=== PATIENT | male | born 1960 | race Caucasian/White ===

== ENCOUNTER 2017-08-26 07:49 | Inpatient (IN) | payer BC, OTHER ==
[~2017-08-26] VITALS: Ht 167.6 cm; Wt 68.0 kg
[2017-08-26 15:00] VITALS: BP 155/91
[2017-08-26] MEDS ORDERED: LOPERAMIDE HCL 2 MG CAPSULE PO PRN ×2 (15:45)
[2017-08-26] MEDS ORDERED: IBUPROFEN 400 MG TABLET PO PRN (15:45)
[2017-08-26] MEDS ORDERED: MAG HYDROX/AL HYDROX/SIMETH 30 ML LIQUID UDC PO PRN (15:45)
[2017-08-26] MEDS ORDERED: THIAMINE HCL 200 MG/2 ML VIAL IM ONE (15:45)
[2017-08-26] MEDS ORDERED: ACETAMINOPHEN 325 MG TABLET PO PRN (15:45)
[2017-08-26] MEDS ORDERED: LORAZEPAM 2 MG/1 ML VIAL IM PRN (15:45)
[2017-08-26] MEDS ORDERED: MAGNESIUM HYDROXIDE 30 ML LIQUID UDC PO PRN (15:45)
[2017-08-26] MEDS ORDERED: DICYCLOMINE HCL 20 MG TABLET PO PRN (15:45)
[2017-08-26] MEDS ORDERED: ONDANSETRON 4 MG/2 ML VIAL IM PRN (15:45)
[2017-08-26] MEDS ORDERED: MIRALAX 17 GM POWD.PACK PO PRN (15:45)
[2017-08-26] MEDS ORDERED: LORAZEPAM 1 MG TABLET PO PRN (15:45)
[2017-08-26 15:55] LABS: *AMPHETAMINE, URINE NEGATIVE (NEGATIVE); *BARBITURATE, URINE NEGATIVE (NEGATIVE); *CANNABINOID, URINE NEGATIVE (NEGATIVE); *COCCAINE, URINE NEGATIVE (NEGATIVE); *OPIATE, URINE NEGATIVE (NEGATIVE); *PHENCYCLIDINE SCREEN,URINE NEGATIVE (NEGATIVE)
[2017-08-26] MEDS ORDERED: ATEN25TA PO (16:13)
[2017-08-26] MEDS ORDERED: ASPI81TA44 PO (16:13)
[2017-08-26] MEDS ORDERED: ATOR10TA PO (16:13)
[2017-08-26] MEDS ORDERED: MAGN400C PO (16:13)
[2017-08-26] MEDS ORDERED: CLON0.1T PO (16:13)
[2017-08-26] MEDS ORDERED: SERT50TA PO (16:13)
[2017-08-26] MEDS ORDERED: PEG15DRO2 OP (16:13)
[2017-08-26] MEDS ORDERED: CLON1TAB4 PO ×2 (16:13)
[2017-08-26] MEDS ORDERED: VISINE EACHEYE PRN (16:30)
[2017-08-26] MEDS ORDERED: [UNRECOGNIZED DRUG - OTHER] EACHEYE PRN (16:30)
[2017-08-26 17:00] VITALS: BP 152/87
[2017-08-26 20:00] VITALS: BP 156/94
[2017-08-26] MEDS: diphenhydrAMINE 50 MG CAPSULE PO PRN (20:45)
[2017-08-26] MEDS: hydrALAZINE HCL 50 MG TABLET PO PRN (20:45)
[2017-08-26] MEDS ORDERED: [UNRECOGNIZED DRUG - OTHER] PO SCH (21:00)
[2017-08-26] MEDS ORDERED: LORAZEPAM 1 MG TABLET PO SCH (21:00)
[2017-08-26] MEDS ORDERED: ATORVASTATIN PO SCH (21:00)
[2017-08-26 22:48] LABS: BASOPHILS % (AUTO) 0.7 % (0.0-2.0); EOSINOPHILS % (AUTO) 0.8 % (0.0-7.0); HEMATOCRIT 45.1 % (36.7-47.1); HEMOGLOBIN 15.7 g/dL (12.5-16.3); LYMPHOCYTES # (AUTO) 1.3 K/uL (20.0-40.0); LYMPHOCYTES % (AUTO) 22.4 % (20.5-51.5); MEAN CORPUSCULAR HEMOGLOBIN 33.6 uug (23.8-33.4); MEAN CORPUSCULAR HGB CONC 35 g/dL (32.5-36.3); MEAN CORPUSCULAR VOLUME 96.4 fL (73.0-96.2); MONOCYTES # (AUTO) 0.6 K/uL (2.0-10.0); MONOCYTES % (AUTO) 9.6 % (0.0-11.0); NEUTROPHILS # (AUTO) 3.9 K/uL (1.8-8.9); NEUTROPHILS % (AUTO) 66.5 % (38.5-71.5); PLATELET COUNT (AUTO) 68 K/uL (152-348); RED BLOOD CELL COUNT(AUTO) 4.69 MIL/uL (4.06-5.63); WHITE BLOOD COUNT (AUTO) 5.9 K/uL (3.6-10.2)
[2017-08-26 23:02] LABS: BILIRUBIN,TOTAL 0.9 mg/dL (0.2-1.0); CREATININE 0.8 mg/dL (0.6-1.3); MAGNESIUM 2.2 mg/dL (1.8-2.4); POTASSIUM 3.7 mmol/L (3.5-5.1); TOTAL PROTEIN, SERUM 7.7 g/dL (6.4-8.2)
[2017-08-27] VITALS: BP 142/80
[2017-08-27] MEDS: CLONIDINE HCL 0.1 MG TABLET PO PRN ×2 (00:16→12:12)
[2017-08-27] MEDS: LORAZEPAM 1 MG TABLET PO PRN ×3 (02:47→17:35)
[2017-08-27] MEDS: ONDANSETRON ODT 4 MG TAB.RAPDIS SL PRN ×2 (02:47→09:10)
[2017-08-27 04:00] VITALS: BP 149/83
[2017-08-27] MEDS: hydrALAZINE HCL 50 MG TABLET PO PRN ×2 (06:39→17:36)
[2017-08-27 08:00] VITALS: BP 138/85
[2017-08-27] MEDS ORDERED: TUBERCULIN,PURIF.PROT.DERIV. 5 TU/0.1 ML TEST ID ONE (09:00)
[2017-08-27] MEDS ORDERED: [UNRECOGNIZED DRUG - OTHER] PO SCH (09:00)
[2017-08-27] MEDS: FOLIC ACID 1 MG TABLET PO SCH (09:03)
[2017-08-27] MEDS: THIAMINE HCL 100 MG TABLET PO SCH (09:03)
[2017-08-27] MEDS: MULTIVITAMINS,THERAPEUTIC TABLET PO SCH (09:03)
[2017-08-27] MEDS: LORAZEPAM 1 MG TABLET PO SCH ×3 (09:03→20:14)
[2017-08-27] MEDS ORDERED: IBUPROFEN 400 MG TABLET PO PRN (09:30)
[2017-08-27] MEDS: SERTRALINE HCL 50 MG TABLET PO SCH (10:36)
[2017-08-27 12:00] VITALS: BP 145/92
[2017-08-27 16:00] VITALS: BP 138/88
[2017-08-27 20:12] VITALS: BP 145/89
[2017-08-27] MEDS: diphenhydrAMINE 50 MG CAPSULE PO PRN (20:14)
[2017-08-27] MEDS: GABAPENTIN 300 MG CAPSULE PO SCH (20:14)
[2017-08-28 00:37] VITALS: BP 141/83
[2017-08-28 04:58] VITALS: BP 139/81
[2017-08-28 07:42] LABS: BASOPHILS % (AUTO) 0.8 % (0.0-2.0); EOSINOPHILS # (AUTO) 0.2 K/uL (0.0-0.7); EOSINOPHILS % (AUTO) 3.1 % (0.0-7.0); LYMPHOCYTES # (AUTO) 0.9 K/uL (20.0-40.0); LYMPHOCYTES % (AUTO) 14.7 % (20.5-51.5); MEAN CORPUSCULAR HEMOGLOBIN 33.6 uug (23.8-33.4); MEAN CORPUSCULAR HGB CONC 35 g/dL (32.5-36.3); MEAN CORPUSCULAR VOLUME 96.3 fL (73.0-96.2); MONOCYTES # (AUTO) 0.5 K/uL (2.0-10.0); MONOCYTES % (AUTO) 8.4 % (0.0-11.0); NEUTROPHILS # (AUTO) 4.4 K/uL (1.8-8.9); PLATELET COUNT (AUTO) 56 K/uL (152-348); RED BLOOD CELL COUNT(AUTO) 4.77 MIL/uL (4.06-5.63)
[2017-08-28 08:06] LABS: HEPATITIS B SURFACE AG Negative (Negative)
[2017-08-28 08:15] VITALS: BP 148/88
[2017-08-28 08:32] LABS: BILIRUBIN,DIRECT 0.9 mg/dL (0.0-0.2); BILIRUBIN,TOTAL 1.9 mg/dL (0.2-1.0); CREATININE 1.1 mg/dL (0.6-1.3); PHOSPHOROUS 3.6 mg/dL (2.5-4.9); TOTAL PROTEIN, SERUM 7.6 g/dL (6.4-8.2)
[2017-08-28] MEDS ORDERED: [UNRECOGNIZED DRUG - OTHER] PO SCH (09:00)
[2017-08-28] MEDS: THIAMINE HCL 100 MG TABLET PO SCH (09:45)
[2017-08-28] MEDS: LORAZEPAM 1 MG TABLET PO SCH ×3 (09:45→20:03)
[2017-08-28] MEDS: FOLIC ACID 1 MG TABLET PO SCH (09:45)
[2017-08-28] MEDS: MULTIVITAMINS,THERAPEUTIC TABLET PO SCH (09:46)
[2017-08-28] MEDS: SERTRALINE HCL 50 MG TABLET PO SCH (09:46)
[2017-08-28] MEDS: GABAPENTIN 300 MG CAPSULE PO SCH ×2 (09:46→20:03)
[2017-08-28 10:29] LABS: BAND % (MANUAL) 3 % (0-10); EOSINOPHILS % (MANUAL) 4 % (0-8); LYMPHOCYTES % (MANUAL) 15 % (20-40); MONOCYTES % (MANUAL) 8 % (2-10); NEUTROPHILS % (MANUAL) 70 % (42-75)
[2017-08-28] MEDS: ATENOLOL 25MG PO SCH (10:32)
[2017-08-28 12:26] VITALS: BP 130/95
[2017-08-28 16:56] VITALS: BP 143/94
[2017-08-28 20:01] VITALS: BP 149/89
[2017-08-28] MEDS: diphenhydrAMINE 50 MG CAPSULE PO PRN (20:03)
[2017-08-28] MEDS ORDERED: AMLODIPINE 5 MG TABLET PO SCH (21:00)
[2017-08-29 08:05] VITALS: BP 139/91
[2017-08-29] MEDS ORDERED: LORAZEPAM 1 MG TABLET PO SCH ×2 (09:00)
[2017-08-29 09:11] LABS: BASOPHILS % (AUTO) 0.8 % (0.0-2.0); EOSINOPHILS # (AUTO) 0.2 K/uL (0.0-0.7); EOSINOPHILS % (AUTO) 3.2 % (0.0-7.0); HEMATOCRIT 48.4 % (36.7-47.1); HEMOGLOBIN 16.8 g/dL (12.5-16.3); LYMPHOCYTES # (AUTO) 0.9 K/uL (20.0-40.0); LYMPHOCYTES % (AUTO) 13.8 % (20.5-51.5); MEAN CORPUSCULAR HEMOGLOBIN 33.8 uug (23.8-33.4); MEAN CORPUSCULAR HGB CONC 35 g/dL (32.5-36.3); MEAN CORPUSCULAR VOLUME 97.2 fL (73.0-96.2); MONOCYTES # (AUTO) 0.4 K/uL (2.0-10.0); MONOCYTES % (AUTO) 6.5 % (0.0-11.0); NEUTROPHILS # (AUTO) 4.8 K/uL (1.8-8.9); NEUTROPHILS % (AUTO) 75.7 % (38.5-71.5); PLATELET COUNT (AUTO) 63 K/uL (152-348); RED BLOOD CELL COUNT(AUTO) 4.98 MIL/uL (4.06-5.63); WHITE BLOOD COUNT (AUTO) 6.3 K/uL (3.6-10.2)
[2017-08-29 09:25] LABS: BILIRUBIN,DIRECT 0.7 mg/dL (0.0-0.2); BILIRUBIN,TOTAL 1.8 mg/dL (0.2-1.0); CREATININE 1.1 mg/dL (0.6-1.3); MAGNESIUM 1.9 mg/dL (1.8-2.4); TOTAL PROTEIN, SERUM 8.1 g/dL (6.4-8.2)
[2017-08-29] MEDS: FOLIC ACID 1 MG TABLET PO SCH (09:27)
[2017-08-29] MEDS: GABAPENTIN 300 MG CAPSULE PO SCH ×2 (09:27→20:01)
[2017-08-29] MEDS: AMLODIPINE 5 MG TABLET PO SCH (09:27)
[2017-08-29] MEDS: THIAMINE HCL 100 MG TABLET PO SCH (09:27)
[2017-08-29] MEDS: MULTIVITAMINS,THERAPEUTIC TABLET PO SCH (09:27)
[2017-08-29] MEDS: SERTRALINE HCL 50 MG TABLET PO SCH (09:27)
[2017-08-29] MEDS: ATENOLOL 25MG PO SCH (10:21)
[2017-08-29 10:43] LABS: BASOPHILS % (MANUAL) 1 % (0-2); EOSINOPHILS % (MANUAL) 6 % (0-8); MONOCYTES % (MANUAL) 8 % (2-10); NEUTROPHILS % (MANUAL) 74 % (42-75)
[2017-08-29 10:44] LABS: LYMPHOCYTES % (MANUAL) 11 % (20-40)
[2017-08-29 12:25] VITALS: BP 141/93
[2017-08-29 16:46] VITALS: BP 138/87
[2017-08-29] MEDS ORDERED: AMLO5TAB2 PO (17:42)
[2017-08-29] MEDS ORDERED: DIPH50CA37 PO (17:42)
[2017-08-29] MEDS ORDERED: GABA-534 PO (17:42)
[2017-08-29 20:00] VITALS: BP 158/95
[2017-08-29] MEDS: CLONIDINE HCL 0.1 MG TABLET PO PRN (20:01)
[2017-08-29] MEDS: diphenhydrAMINE 50 MG CAPSULE PO PRN (20:01)
[2017-08-29 21:00] VITALS: BP 125/85
[2017-08-30 08:00] VITALS: BP 140/90
[2017-08-30] MEDS ORDERED: INFLUENZA VACCINE 2017-2018 0.5 ML DISP.SYRIN IM ONE (08:15)
[2017-08-30 08:50] VITALS: BP 140/90
[2017-08-30] MEDS: SERTRALINE HCL 50 MG TABLET PO SCH (08:50)
[2017-08-30] MEDS: MULTIVITAMINS,THERAPEUTIC TABLET PO SCH (08:50)
[2017-08-30] MEDS: FOLIC ACID 1 MG TABLET PO SCH (08:50)
[2017-08-30] MEDS: GABAPENTIN 300 MG CAPSULE PO SCH (08:50)
[2017-08-30] MEDS: ATENOLOL 25MG PO SCH (08:50)
[2017-08-30] MEDS: AMLODIPINE 5 MG TABLET PO SCH (08:50)
[2017-08-30] MEDS: THIAMINE HCL 100 MG TABLET PO SCH (08:50)
[2017-08-30] MEDS ORDERED: LORAZEPAM 1 MG TABLET PO SCH (09:00)
== END 2017-08-30 09:19 | disposition home or self-care (01) | DRG 895 ==
LOC: SRC 14:11
PROVIDERS: ADMIT Internal Medicine; ATTEND Internal Medicine
PROC: HZ2ZZZZ Detoxification Services for Substance Abuse Treatment (ICD-10-PCS; principal; 2017-08-26)
PROC: HZ31ZZZ Individual Counseling for Substance Abuse Treatment, Behavioral (ICD-10-PCS; 2017-08-29)
DX: F10.232 Alcohol dependence with withdrawal with perceptual disturbance (principal); D69.6 Thrombocytopenia, unspecified; E87.2 Acidosis; F33.1 Major depressive disorder, recurrent, moderate; K70.10 Alcoholic hepatitis without ascites; Y90.4 Blood alcohol level of 80-99 mg/100 ml; G47.00 Insomnia, unspecified; Z81.1 Family history of alcohol abuse and dependence; F41.9 Anxiety disorder, unspecified; E78.5 Hyperlipidemia, unspecified; Z79.899 Other long term (current) drug therapy; Z79.82 Long term (current) use of aspirin; Z85.820 Personal history of malignant melanoma of skin; F13.90 Sedative, hypnotic, or anxiolytic use, unspecified, uncomplicated; I15.9 Secondary hypertension, unspecified
CPT/HCPCS: 36415; 80307; 82746; 83735; 84100; 85025; 86580; 86592; 86705; 86803; 87340; 87806; 90686; G0480; J2405; J3411; Q0162; Q0163